=== PATIENT | female | born 1980 | race African-American/Black ===

== ENCOUNTER 2016-09-28 12:44 | Emergency (ER) | payer OTHER | END 2016-09-28 14:10 | disposition left against medical advice (07) | LOC: UCEAST 12:44 | DX: K08.89 Other specified disorders of teeth and supporting structures (principal); Z53.21 Procedure and treatment not carried out due to patient leaving prior to being seen by health care provider | CPT/HCPCS: 99211; G0463 ==

== ENCOUNTER 2016-09-28 15:01 | Emergency (ER) | payer OTHER ==
[2016-09-28 16:31] VITALS: BP 117/71
[2016-09-28] MEDS ORDERED: HYDROcodone/ACETAMIN 5-325 MG* 1 TAB PO ONE (17:44)
[2016-09-28] MEDS ORDERED: Amoxicillin PO (*) 500 MG CAP PO ONE (17:44)
--- NOTE | 2016-09-28 17:44 | UC ---
[facility] HPI - HPI Summary HPI Summary: right lower posterior dental pain, has a dental appointment for later in the week - History of Current Complaint Chief Complaint: UCDentalProblem Stated Complaint: TOOTH ACHE Time Seen by Provider: 09/28/16 17:37 Hx Obtained From: Patient Hx Last Menstrual Period: 09/13/16 ?: No Onset/Duration: Sudden Onset, Lasting Days - 2, Still Present, Worse Since - last night Severity: Moderate Pain Intensity: 8 Pain Scale Used: 0-10 Numeric Aggravating: Nothing Alleviating: OTC Meds Related History: Previous Dental Care on Same Tooth - Allergies/Home Medications Allergies/Adverse Reactions: Allergies Allergy/AdvReac Type Severity Reaction Status Date / Time No Known Allergies Allergy Verified 09/28/16 16:31 Home Medications: Home Medications Control* 09/28/16 [History] Cyclobenzaprine TAB* [Flexeril TAB*] 10 mg PO PRN 09/28/16 [History] PMH/Surg Hx/FS Hx/Imm Hx Previously Healthy: Yes - Surgical History Surgical History: None - Family History Known Family History: Positive: None Family History: no reported cardiovascular issues in family lineage - Social History Occupation: Unemployed Lives: With Family Alcohol Use: Occasionally Substance Use Type: None Smoking Status (MU): Current Every Day Smoker Type: Cigarettes Amount Used/How Often: 3 CIG/DAY - Immunization History Most Recent Tetanus Shot: 2011 Review of Systems Constitutional: Negative Skin: Negative Eyes: Negative ENT: Dental Pain Respiratory: Negative Cardiovascular: Negative Gastrointestinal: Negative Genitourinary: Negative Motor: Negative Neurovascular: Negative Musculoskeletal: Negative Neurological: Negative Psychological: Negative All Other Systems Reviewed And Are Negative: Yes Physical Exam Triage Information Reviewed: Yes Appearance: Well-Appearing, Well-Nourished, Pain Distress - mild Vital Signs: Initial Vital Signs Temp 97.7 F 09/28/16 16:27 Pulse 92 09/28/16 16:27 Resp 16 09/28/16 16:27 BP 117/71 09/28/16 16:27 Pulse Ox 100 09/28/16 16:27 Vital Signs Reviewed: Yes Eye Exam: Normal Eyes: Positive: Conjunctiva Clear ENT Exam: Normal ENT: Positive: Normal ENT inspection, Hearing grossly normal, TMs normal. Negative: Nasal congestion, Nasal drainage, Tonsillar swelling, Tonsillar exudate, Trismus, Muffled/hoarse voice Dental Exam: Other Dental: Positive: Gross Decay/Caries @ - posterior right lower molars Neck exam: Normal Neck: Positive: Supple, Nontender, No Lymphadenopathy Respiratory Exam: Normal Respiratory: Positive: Chest non-tender, Lungs clear, Normal breath sounds, No respiratory distress, No accessory muscle use Cardiovascular Exam: Normal Cardiovascular: Positive: RRR, No Murmur, Pulses Normal, Brisk Capillary Refill Musculoskeletal Exam: Normal Musculoskeletal: Positive: Strength Intact, ROM Intact, No Edema Neurological Exam: Normal Neurological: Positive: Alert Psychological Exam: Normal Skin Exam: Normal Dental Complaint Course/Dx - Course Course Of Treatment: pain med, amoxicillin, heat for comfort follow with dentist this week as planned - Differential Dx/Diagnosis Differential Diagnosis/Dx: Dental Abscess, Dental Caries, Fractured Tooth, Odontogenic Pain Provider Diagnoses: Dental pain, dental caries Discharge - Discharge Plan Condition: Stable Disposition: HOME Prescriptions: Amoxicillin CAP* 500 mg PO TID #29 cap HYDROcodone/ACETAMIN 5-325 MG* [[place] 5-325 TAB*] 1 tab PO Q6H PRN #10 tab MDD 4 PRN Reason: pain Naproxen Sodium [Naproxen Sodium ER] 500 mg PO Q12H PRN #20 tab PRN Reason: pain Patient Education Materials: Dental Caries (ED), Toothache (ED) Referrals: Jackson Cast MD [Primary Care Provider] - If Needed Additional Instructions: [facility] at [facility] or [facility] as planned this week
[2016-09-28] MEDS ORDERED: Naproxen TAB* 250 MG PO ONE ×2 (17:46→17:55)
== END 2016-09-28 18:23 | disposition home or self-care (01) ==
LOC: UCEAST 15:01
DX: K04.7 Periapical abscess without sinus (principal); K08.89 Other specified disorders of teeth and supporting structures; F17.210 Nicotine dependence, cigarettes, uncomplicated
CPT/HCPCS: 99213; A9270-GY; G0463

== ENCOUNTER 2017-08-02 05:58 | Day surgery (SDC) | payer OTHER ==
[~2017-08-02 05:58] MED LIST: Buffered Lidocaine 0.9% SYRIN* 5 ML/SYR SYRINGE INTRADERM ONE; DiMENhydriNATE IV* 50 MG/ML VIAL IV PUSH PRN; Morphine INJ* 2 MG/ML 1 ML CARPUJECT IV PRN; Ondansetron INJ* 2 MG/ML VIAL IV PRN; PROCHLORPERAZINE INJ 5 MG/ML 2 ML VIAL IV PRN; Scopolamine 1.5 mg* PATCH TRANSDERM PRN; fentaNYL* 50 MCG/ML 2 ML VIAL (100 MCG VIAL) IV PRN; oxyCODONE/Acetamin 5/325 MG* TAB PO PRN
[2017-08-02] MEDS ORDERED: Famotidine IV* 10 MG/ML 2 ML (20 mg) IV ONE (06:00)
[2017-08-02] MEDS ORDERED: Buffered Lidocaine 0.9% SYRIN* 5 ML/SYR SYRINGE ONE (06:04)
[2017-08-02] MEDS ORDERED: Famotidine IV* 10 MG/ML 2 ML (20 mg) ONE (06:04)
[2017-08-02] MEDS ORDERED: fentaNYL* 50 MCG/ML 2 ML VIAL (100 MCG VIAL) ONE (07:11)
[2017-08-02] MEDS ORDERED: Midazolam* 1 MG/ML 10 ML VIAL (10 MG) ONE (07:11)
[2017-08-02] MEDS ORDERED: KETAMINE HCL* 50 MG/ML 10 ML VIAL ONE (07:11)
[2017-08-02] MEDS ORDERED: Ondansetron INJ* 2 MG/ML VIAL ONE (08:12)
[2017-08-02] MEDS ORDERED: Propofol* 10 MG/ML 20 ML BTL IV PUSH ONE (08:12)
[2017-08-02] MEDS ORDERED: Ketorolac INJ* 30 MG/ML 1 ML VIAL ONE (08:12)
[2017-08-02] MEDS ORDERED: Dexamethasone IV* 4 MG/ML 1 ML (4 MG) ONE (08:12)
[2017-08-02] MEDS ORDERED: Chloroprocaine 2%* 20 ML VIAL ONE (08:12)
[2017-08-02 09:33] VITALS: BP 108/54
[2017-08-05] MEDS ORDERED: Scopolamine PATCH Remove* 1 NOTE MISC PATCH OFF ONE (05:40)
--- NOTE | 2017-08-09 06:04 | OP ---
OPERATIVE REPORT: DATE OF OPERATION: 08/02/17 DATE OF : 78 SURGEON: Dr. Grande. ANESTHESIA: Spinal. PRE-OP DIAGNOSIS: Missed . POST-OP DIAGNOSIS: Missed . OPERATIVE PROCEDURE: Dilation and evacuation with suction curettage. ESTIMATED BLOOD LOSS: 50 cc. SPECIMENS SENT TO PATHOLOGY: Endometrial curettings. FLUIDS: She received 1100 cc of IV crystalloid fluid. URINE OUTPUT: 100 cc of clear urine. FINDINGS: Her exam under anesthesia revealed a uterus that sounded to 11 cm in anteverted position w ith moderate amounts of products of conception removed during the dilation and evacuation. DESCRIPTION OF PROCEDURE: The patient was taken to the operating room where she was identified. She was placed on the operating room table where a spinal anesthetic was obtained without difficulty. S he was then placed in a dorsal lithotomy position, prepped and draped in a normal sterile fashion. A ttention was then brought on to the patient's perineum where the bladder was catheterized and clear o f urine after which a weighted speculum was entered into the patient's vagina. The cervix was identi fied, grasped with a single-tooth tenaculum and through the cervix a sound was introduced and the native scott was sounded to 11 cm and was noted to be in an anteverted position. After sounding, I then proce eded to dilate the cervix with Hegar dilators in a successful fashion until I was able to insert a 10 mm curve suction curette through the cervix up to the fundus of the uterus. Suction was applied to the curette and a suctioning curettage was then confirmed. After the uterus was deemed to be empty, a sharp curettage was done in order to assure complete denudation of the endometrium. This was confi rmed with a sharp curettage. At this point, all the instruments were removed from the patient's vagi na. Sponge, lap, and needle counts were correct x2. She was then transferred to the recovery room a jennifer in stable condition. [id number]/[facility] #: [id number]
== END 2017-08-02 10:04 | disposition home or self-care (01) ==
LOC: OR 05:58
PROVIDERS: ATTEND Obstetrics & Gynecology
DX: O02.1 Missed abortion (principal); Z87.891 Personal history of nicotine dependence
CPT/HCPCS: 62323; 88305; J1100; J1885; J2250; J2400; J2405; J2704; J3010

== ENCOUNTER 2017-09-05 14:17 | Emergency (ER) | payer OTHER ==
[2017-09-05 16:14] LABS: ABS Basophils 0.1 10^3/ul (0-0.2); ABS Eosinophils 0.3 10^3/ul (0-0.6); ABS Lymphocytes 2.9 10^3/ul (1.0-4.8); ABS Monocytes 0.8 10^3/ul (0-0.8); ABS Neutrophils 8.8 10^3/ul (1.5-7.7); ABS Nucleated RBC 0 10^3/ul; Hematocrit 40 % (35-47); Hemoglobin 13.2 g/dl (12.0-16.0); Lymphocyte % 22.3 % (25-47); Mean Corpuscular HGB Conc 33 g/dl (31-36); Mean Corpuscular Hemoglobin 29 pg (27-31); Mean Corpuscular Volume 88 fL (80-97); Mean Platelet Volume 8 um3 (7.4-10.4); Nucleated Red Blood Cells % 0; Platelet Count 291 10^3/ul (150-450); Red Blood Count 4.56 10^6/ul (4.0-5.4); Red Cell Distribution Width 15 % (10.5-15); White Blood Count 12.9 10^3/ul (3.5-10.8)
[2017-09-05 16:20] LABS: EGFR Non-African American 98.5 (>60)
[2017-09-05 16:26] LABS: INR 0.95 (0.77-1.02)
[2017-09-05] MEDS ORDERED: Ketorolac INJ* 30 MG/ML 1 ML VIAL IV PUSH ONE (19:30)
[2017-09-05] MEDS ORDERED: Morphine INJ* 4 MG/ML 1 ML CARPUJECT IV ONE (19:31)
[2017-09-05] MEDS ORDERED: NS 0.9% 1000 ML* 1,000 ML IV ONE (19:31)
[2017-09-05] MEDS ORDERED: Morphine INJ* 2 MG/ML 1 ML SYRINGE (TWO MG - NEW SYRINGE VERSION) ONE (19:48)
[2017-09-05 20:10] LABS: Urine Appearance Cloudy; Urine Blood 2+ (Negative); Urine Color Yellow; Urine Ketones Negative (Negative); Urine Protein Negative (Negative); Urine Urobilinogen Negative (Negative)
[2017-09-05] MEDS ORDERED: Iohexol 300* (CONTRAST) 10 ML SDV IV ONE (20:26)
--- NOTE | 2017-09-05 20:31 | RAD ---
INDICATION: Right worse then left pelvic pain 5 weeks after D and C for incomplete miscarriage COMPARISON: None. TECHNIQUE: Real-time transabdominal and transvaginal ultrasound examination of the female pelvis including grayscale and Doppler color flow imaging. FINDINGS: Uterus: The uterus measures 9.7 x 4.2 x 6.8 cm. The endometrial stripe measures up to 1.8 cm in thickness at the level of the uterine fundus. There is no vascularity identified overlying the endometrial stripe. Ovaries: The right and left ovary measure 3.1 x 2.2 x 2.9 cm and 3.7 x 2.1 x 2.5 cm, respectively. Normal arterial and venous waveforms are identified. Appearance is within normal limits for the patient's age. There is a small amount of free fluid in the cul-de-sac. IMPRESSION: Abnormally thickened endometrium measuring 1.8 cm in maximum thickness without vascular flow characteristic of retained products of conception.
--- NOTE | 2017-09-05 21:48 | ED ---
Abdominal Pain/Female - HPI Summary HPI Summary: 37F presents with abdominal pain for past week that got worst yesterday. She states that pain is worst in lower abdomen. She states she has a D&C [address] nunes for a miscarriage. She denies any fever. She admits to nausea. She denies any vaginal discharge or bleeding. she has not had a period since. She denies any diarrhea or constipation. She had two miscarriages and two surgical abortions. She has tried ibuprofen for pain. She denies any diarrhea or constipation. She has never had this pain before. The pain is greatest in the suprapubic region but radiates to the side of lower abdomen. She denies any dysuria, flank pain, hematuria. She states pain is best when she hold her lower abdomen. She states pain is sharp in nature. - History of Current Complaint Chief Complaint: EDAbdPain Stated Complaint: ABD PAIN Time Seen by Provider: 09/05/17 18:03 Hx Last Menstrual Period: 09/13/16 Pain Intensity: 8 Allergies/Adverse Reactions: Allergies Allergy/AdvReac Type Severity Reaction Status Date / Time No Known Allergies Allergy Verified 09/05/17 14:26 PMH/Surg Hx/FS Hx/Imm Hx Endocrine/Hematology History: Reports: Hx Anemia - could possible - needs blood test Denies: Hx Diabetes Cardiovascular History: Reports: Hx Hypertension GI History: Reports: Hx Ulcer - in college - takes Axid prn History: Denies: Hx Renal Disease Sensory History: Reports: Hx Contacts or Glasses - glasses Denies: Hx Hearing Aid Opthamlomology History: Reports: Hx Contacts or Glasses - glasses Psychiatric History: Reports: Hx Anxiety - situational - Cancer History Hx Chemotherapy: No - Surgical History Surgery Procedure, Year, and Place: december 2016 teeth pulled and placement of fake cheek right side Hx Anesthesia Reactions: No Infectious Disease History: No Infectious Disease History: Denies: Traveled Outside the [place] in Last 30 Days - Family History Known Family History: Positive: None Family History: no reported cardiovascular issues in family lineage - Social History Alcohol Use: None Substance Use Type: Reports: None Smoking Status (MU): Former Smoker Type: Cigarettes Amount Used/How Often: 3 CIG/DAY, smoked on and off for 4-5 years Review of Systems Negative: Fever Negative: Chest Pain Negative: Shortness Of Breath Positive: Abdominal Pain, Nausea, Other - no vaginal bleeding. Negative: Vomiting, Diarrhea All Other Systems Reviewed And Are Negative: Yes Physical Exam Triage Information Reviewed: Yes Vital Signs On Initial Exam: Initial Vitals Temp Pulse Resp BP Pulse Ox 98.5 F 113 20 132/88 100 09/05/17 14:22 09/05/17 14:22 09/05/17 14:22 09/05/17 14:22 09/05/17 14:22 Vital Signs Reviewed: Yes Appearance: Positive: Well-Appearing Skin: Positive: Warm, Dry Head/Face: Positive: Normal Head/Face Inspection Eyes: Positive: Normal, EOMI, ANGEL, Conjunctiva Clear ENT: Positive: Normal ENT inspection, Pharynx normal, TMs normal Respiratory/Lung Sounds: Positive: Clear to Auscultation, Breath Sounds Present Cardiovascular: Positive: Normal, RRR Abdomen Description: Positive: Soft, Other: - tenderness greatest suprapubic with mild tenderness RLQ and LLQ Bowel Sounds: Positive: Present Pelvic Exam: Positive: external exam normal, speculum exam normal, no cerv. motion tender, tender uterus. Negative: tender adnexa Musculoskeletal: Positive: Normal Neurological: Positive: Normal Psychiatric: Positive: Normal - Santy Coma Scale Coma Scale Total: 15 Diagnostics - Vital Signs Vital Signs Temp Pulse Resp BP Pulse Ox 09/05/17 19:50 16 09/05/17 18:22 97.8 F 122/66 100 09/05/17 14:22 98.5 F 113 20 132/88 100 - Laboratory Lab Results: Lab Results 09/05/17 09/05/17 09/05/17 Range/Units 15:48 15:48 15:48 WBC 12.9 H (3.5-10.8) 10^3/ul RBC 4.56 (4.0-5.4) 10^6/ul Hgb 13.2 (12.0-16.0) g/dl Hct 40 (35-47) % MCV 88 (80-97) fL MCH 29 (27-31) pg MCHC 33 (31-36) g/dl RDW 15 (10.5-15) % Plt Count 291 (150-450) 10^3/ul MPV 8 (7.4-10.4) um3 Neut % (Auto) 68.4 (38-83) % Lymph % (Auto) 22.3 L (25-47) % [place] % (Auto) 6.6 (1-9) % Eos % (Auto) 2.0 (0-6) % Baso % (Auto) 0.7 (0-2) % Absolute Neuts (auto) 8.8 H (1.5-7.7) 10^3/ul Absolute Lymphs (auto) 2.9 (1.0-4.8) 10^3/ul Absolute Monos (auto) 0.8 (0-0.8) 10^3/ul Absolute Eos (auto) 0.3 (0-0.6) 10^3/ul Absolute Basos (auto) 0.1 (0-0.2) 10^3/ul Absolute Nucleated RBC 0 10^3/ul Nucleated RBC % 0 INR (Anticoag Therapy) 0.95 (0.77-1.02) APTT 30.5 (26.0-36.3) seconds Sodium 138 (133-145) mmol/L Potassium 3.5 (3.5-5.0) mmol/L Chloride 105 (101-111) mmol/L Carbon Dioxide 28 (22-32) mmol/L Anion Gap 5 (2-11) mmol/L BUN 12 (6-24) mg/dL Creatinine 0.67 (0.51-0.95) mg/dL Est GFR ( Amer) 126.7 (>60) Est GFR (Non-Af Amer) 98.5 (>60) BUN/Creatinine Ratio 17.9 (8-20) Glucose 123 H (70-100) mg/dL Lactic Acid (0.5-2.0) mmol/L Calcium 9.9 (8.6-10.3) mg/dL Magnesium 2.4 (1.9-2.7) mg/dL Total Bilirubin 0.40 (0.2-1.0) mg/dL AST 10 L (13-39) U/L ALT 10 (7-52) U/L Alkaline Phosphatase 80 (34-104) U/L Total Creatine Kinase 49 (10-223) U/L C-Reactive Protein 16.31 H (< 5.00) mg/L Total Protein 6.9 (6.4-8.9) g/dL Albumin 4.2 (3.2-5.2) g/dL Globulin 2.7 (2-4) g/dL Albumin/Globulin Ratio 1.6 (1-3) Amylase 41 (29-103) U/L Lipase 26 (11.0-82.0) U/L Beta HCG, Quant 1.62 mIU/mL Urine Color Urine Appearance Urine pH (5-9) Ur Specific [place] (1.010-1.030) Urine Protein (Negative) Urine Ketones (Negative) Urine Blood (Negative) Urine Nitrate (Negative) Urine Bilirubin (Negative) Urine Urobilinogen (Negative) Ur Leukocyte Esterase (Negative) Urine WBC (Auto) (Absent) Urine RBC (Auto) (Absent) Ur Squamous Epith Cells (Absent) Calcium Oxalate Crystal (Absent) Urine Bacteria (Absent) Urine Glucose (Negative) 09/05/17 09/05/17 09/05/17 Range/Units 15:48 19:55 20:50 WBC (3.5-10.8) 10^3/ul RBC (4.0-5.4) 10^6/ul Hgb (12.0-16.0) g/dl Hct (35-47) % MCV (80-97) fL MCH (27-31) pg MCHC (31-36) g/dl RDW (10.5-15) % Plt Count (150-450) 10^3/ul MPV (7.4-10.4) um3 Neut % (Auto) (38-83) % Lymph % (Auto) (25-47) % Z[place]ala % (Auto) (1-9) % Eos % (Auto) (0-6) % Baso % (Auto) (0-2) % Absolute Neuts (auto) (1.5-7.7) 10^3/ul Absolute Lymphs (auto) (1.0-4.8) 10^3/ul Absolute Monos (auto) (0-0.8) 10^3/ul Absolute Eos (auto) (0-0.6) 10^3/ul Absolute Basos (auto) (0-0.2) 10^3/ul Absolute Nucleated RBC 10^3/ul Nucleated RBC % INR (Anticoag Therapy) (0.77-1.02) APTT (26.0-36.3) seconds Sodium (133-145) mmol/L Potassium (3.5-5.0) mmol/L Chloride (101-111) mmol/L Carbon Dioxide (22-32) mmol/L Anion Gap (2-11) mmol/L BUN (6-24) mg/dL Creatinine (0.51-0.95) mg/dL Est GFR ( Amer) (>60) Est GFR (Non-Af Amer) (>60) BUN/Creatinine Ratio (8-20) Glucose (70-100) mg/dL Lactic Acid 1.2 0.8 (0.5-2.0) mmol/L Calcium (8.6-10.3) mg/dL Magnesium (1.9-2.7) mg/dL Total Bilirubin (0.2-1.0) mg/dL AST (13-39) U/L ALT (7-52) U/L Alkaline Phosphatase (34-104) U/L Total Creatine Kinase (10-223) U/L C-Reactive Protein (< 5.00) mg/L Total Protein (6.4-8.9) g/dL Albumin (3.2-5.2) g/dL Globulin (2-4) g/dL Albumin/Globulin Ratio (1-3) Amylase (29-103) U/L Lipase (11.0-82.0) U/L Beta HCG, Quant mIU/mL Urine Color Yellow Urine Appearance Cloudy Urine pH 6.0 (5-9) Ur Specific [place] 1.020 (1.010-1.030) Urine Protein Negative (Negative) Urine Ketones Negative (Negative) Urine Blood 2+ H (Negative) Urine Nitrate Negative (Negative) Urine Bilirubin Negative (Negative) Urine Urobilinogen Negative (Negative) Ur Leukocyte Esterase 1+ H (Negative) Urine WBC (Auto) Trace(0-5/hpf) (Absent) Urine RBC (Auto) Trace(0-2/hpf) (Absent) Ur Squamous Epith Cells Present H (Absent) Calcium Oxalate Crystal Present H (Absent) Urine Bacteria Absent (Absent) Urine Glucose Negative (Negative) Result Diagrams: 09/05/17 15:48 09/05/17 15:48 Lab Statement: Any lab studies that have been ordered have been reviewed, and results considered in the medical decision making process. - CT No standard instances CT Interpretation: No Acute Changes - IMPRESSION: 1. No CT apparent acute abnormality of the gastrointestinal tract including a normal appendix. 2. Widening of the endometrial stripe is evident measuring 1.6 cm in thickness and there is trace free fluid in the cul-de-sac. CT Interpretation Completed By: Radiologist - Ultrasound No standard instances Ultrasound Interpretation: Positive (See Comments) - IMPRESSION: Abnormally thickened endometrium measuring 1.8 cm in maximum thickness without vascular flow characteristic of retained products of conception. Ultrasound Interpretation Completed By: Radiologist Abdominal Pain Fem Course/Dx - Course Course Of Treatment: 37F presents with abdominal pain for past week that got worst yesterday. She states that pain is worst in lower abdomen. She states she has a D&C [address] done [address] dr nunes for a miscarriage. She denies any fever. She admits to nausea. She denies any vaginal discharge or bleeding. she has not had a period since. She denies any diarrhea or constipation. She had two miscarriages and two surgical abortions. She has tried ibuprofen for pain. She denies any diarrhea or constipation. She has never had this pain before. The pain is greatest in the suprapubic region but radiates to the side of lower abdomen. She denies any dysuria, flank pain, hematuria. She states pain is best when she hold her lower abdomen. She states pain is sharp in nature. on exam bilateral lower quadrant pain greatest in suprapubic, on pelvic exam tenderness with palpation of uterus, no CMT. u/s shows retained product, wbc [address] ngo states likely endometritis due to no bleeding so treat with augmentin and follow up with obgyn. patient understand and agrees with plan. - Diagnoses Differential Diagnosis: Positive: Appendicitis, Diverticulitis, Other - retained products, endometritis Provider Diagnoses: Abdominal pain - Provider Notifications Discussed Care Of Patient With: dr michelle Time Discussed With Above Provider: 22:00 - discharge on augmentin and have follow up with obgyn Discharge - Discharge Plan Condition: Good Disposition: HOME Prescriptions: Amoxicillin/Clavulanate TAB* [Augmentin TAB 875*] 875 mg PO BID #19 tab Patient Education Materials: Endometritis (ED) Referrals: Robert Cortez MD [Primary Care Provider] - Jovanny Nunes MD [Medical Doctor] - Additional Instructions: Take augmentin twice a day for 10 days Follow up with obgyn Take tyenlol or ibuprofen for pain every 6 hours Return to ED if develop any fever, or any new or worsening symptoms
[2017-09-05] MEDS ORDERED: cefTRIAXone(*) 1 GM in NS 0.9% 50 ML* 50 ML IVPB ONE (22:08)
[2017-09-05] MEDS ORDERED: Amoxicillin/Clavulanate TAB* 875 MG PO ONE (22:15)
--- NOTE | 2017-09-05 22:26 | RAD ---
CLINICAL HISTORY: Lower abdominal pain COMPARISON: Same day pelvic ultrasound TECHNIQUE: Contrast enhanced CT examination of the abdomen and pelvis from the lung bases through the initial tuberosities. The patient received 100 and mL Omnipaque 300 intravenously prior to imaging.The patient received oral contrast as well prior to imaging. FINDINGS: VISUALIZED LUNG BASES: The visualized lung bases are grossly clear. There is no pleural effusion. ABDOMEN AND PELVIS: The liver, spleen, pancreas and adrenal glands are grossly normal in appearance. The gallbladder is normal. The kidneys are normal in appearance without focal mass, calcification or signs of hydronephrosis. The oral contrast as progressed as far as the descending colon. The small and large bowel are not distended. The patient's normal appendix is identified in the right lower quadrant with gas and stool-filled lumen measuring just under 6 mm in diameter.. There is no gross retroperitoneal or mesenteric lymphadenopathy. Better depicted on pelvic ultrasound there is evidence of endometrial stripe thickening measuring at least 1.6 cm. The abdominal aorta and iliac arteries are normal in course and diameter. The bones are normal. IMPRESSION: 1. No CT apparent acute abnormality of the gastrointestinal tract including a normal appendix. 2. Widening of the endometrial stripe is evident measuring 1.6 cm in thickness and there is trace free fluid in the cul-de-sac.
[2017-09-05] MEDS ORDERED: traMADol TAB* 50 MG ONE (22:38)
[2017-09-05 22:44] VITALS: BP 126/69
--- NOTE | 2017-09-07 12:35 | PN ---
Progress Note - Progress Note Date of Service: 09/07/17 Note: Patient urine culture grew MRSA [id number] and gardenerella for vaginal culture. called patient and placed on macrobid 100mg x5 days and flagyl bid x 7 days.
== END 2017-09-05 22:42 | disposition home or self-care (01) ==
LOC: ED 14:17
DX: R10.9 Unspecified abdominal pain (principal); F17.210 Nicotine dependence, cigarettes, uncomplicated
CPT/HCPCS: 36415; 74177; 76830; 80053; 81003; 81015; 82150; 82550; 83605; 83690; 83735; 84702; 85025; 85610; 85730; 86140; 87077; 87086; 87186; 87480; 87491; 87510; 87591; 87661; 96361; 96374; 96375; 96376; 99283; A9270-GY; J0696; J1885; J2270; Q9967